=== PATIENT | female | born 1980 | race Caucasian/White ===

== ENCOUNTER → 2021-07-27 | Outpatient (CLI) | payer BC | END | disposition home or self-care (01) | LOC: LAB SHORT 12:07 | DX: N94.6 Dysmenorrhea, unspecified (principal) | CPT/HCPCS: 88305 ==

== ENCOUNTER 2021-10-28 07:40 | Day surgery (SDC) | payer BC ==
[~2021-10-28] VITALS: Ht 162.6 cm; Wt 71.2 kg
--- NOTE | 2021-10-28 08:40 | NUR ---
Ambulatory in Day Surgery History, Chart, Medications and Allergies reviewed before start of procedure. Pre-Op teaching done. Pt verbalizes understanding.
--- NOTE | 2021-10-28 13:19 | NUR ---
PT TOLERATED JELLO AND CRACKERS WELL, SHE WAS THEN TREATED WITH ORAL CHEWABLE SIMETHICONE TO PREVENT GAS PAIN
[2021-10-28 13:34] LABS: BASOPHILS ABSOLUTE AUTO 0.01 K/mm3 (0.00-0.23); BASOPHILS PERCENT AUTO 0 % (0-2); EOSINOPHILS ABSOLUTE AUTO 0.01 K/mm3 (0.00-0.68); EOSINOPHILS PERCENT AUTO 0 % (0-6); Hematocrit 40.2 % (33.0-51.0); Hemoglobin 13.8 g/dL (11.5-16.0); IMMATURE GRAN ABSOLUTE AUTO 0.05 K/mm3 (0.00-0.10); IMMATURE GRAN PERCENT AUTO 0 % (0-1); LYMPHOCYTES ABSOLUTE AUTO 0.65 K/mm3 (0.84-5.20); LYMPHOCYTES PERCENT AUTO 5 % (21-46); MONOCYTES ABSOLUTE AUTO 0.11 K/mm3 (0.16-1.47); MONOCYTES PERCENT AUTO 1 % (4-13); Mean Corpuscular HGB 31.5 pg (26.0-34.0); Mean Corpuscular HGB Conc 34.3 g/dL (31.5-36.5); Mean Corpuscular Volume 92 fL (80-100); Mean Platelet Volume 10.9 fL (9.1-12.4); NEUTROPHILS ABSOLUTE AUTO 12.33 K/mm3 (1.96-9.15); NEUTROPHILS PERCENT AUTO 94 % (41-73); Platelet Count 233 K/mm3 (150-400); RDW Coefficient Variation 11.9 % (11.7-14.2); RDW Standard Deviation 40.1 fL (35.1-46.3); Red Blood Cell Count 4.38 M/mm3 (3.80-5.20); White Blood Cell Count 13.16 K/mm3 (4.00-11.30)
--- NOTE | 2021-10-28 14:43 | NUR ---
PATIENT UPDATE THIS RN AND RODERICK RN ATTEMPTED TO AMBULATE THE PATIENT AT THE PATIENT REQUEST. PATIENT WAS ABLE TO SIT ON THE SIDE OF THE BED AND TOLERATED THAT WELL. UPON STANDING FOR A MINUTE IN FROM OF THE BED THE PATIENT BECAME NAUSEOUS. PATIENT SAT BACK IN BED AND ASKED TO LAY BACK DOWN. PATIENT ASSISTED AND HEATING PAD GIVEN TO PATIENT. PATIENT REPORTED HER PAIN IS WELL CONTROLLED CURRENTLY. MEDICATED PER EMAR FOR NAUSEA. SCDs PUT BACK ON BILATERAL CALVES. BED IN LOWEST POSITION AND CALL LIGHT IN REACH. PATIENT'S MOTHER AT BEDSIDE.
--- NOTE | 2021-10-28 16:33 | NUR ---
PATIENT UPDATE PATIENT WAS ABLE TO AMBULATE TO THE HALLWAY WITH THIS RN AND RODERICK RN WALKING WITH HER FOR SAFETY. PATIENT DENIED PAIN/DIZZINESS/NAUSEA DURING AMBULATION. ARGUELLO CATHETER WAS DC'D WHEN PATIENT RETURNED TO THE BED. PATIENT INDEPENDENTLY WALKED TO THE BATHROOM AFTER CATHETER WAS REMOVED AND WAS ABLE TO VOID A SMALL UNMEASURABLE AMOUNT. HAT PLACED IN TOILET TO MEASURE FURTHER VOIDS. PATIENT IN BED WITH MOTHER AT BEDSIDE. BED IN LOWEST POSITION AND CALL LIGHT WITHIN REACH.
[2021-10-28] MEDS ORDERED: Percocet 5-3251 EACH PO (18:16)
[2021-10-28] MEDS ORDERED: IBU800 MG PO (18:17)
--- NOTE | 2021-10-28 20:49 | NUR ---
DISCHARGE SUMMARY POD0 LAP HYSTER, A/O X4, VSS, TOLERATING PO, AMBULATING INDEPENDENTLY, VOIDING WELL, PAIN TOLERABLE WITH OUT NEEDING MEDICATIONS (PER PT REPORT). DISCUSSED DISCHARGE INFORMATION WITH THE PATIENT AND HER FAMILY INCLUDING HOME CARE, MEDICATIONS, S/SX TO LOOK OUT FOR, CONTACT INFORMATION SHOULD QUESTIONS COME UP AFTER DISCHARGE, AND FOLLOW UP APPOINTMENTS. PT REPORTED HAVING NO QUESTIONS AT THIS TIME. REMOVED IV ACCESS AND NO OTHER ACCESS DEVICES IN PLACE AT TIME OF DISCHARGE. PT DECLINED WC ESCORT AND LEFT ON FOOT TO GO HOME WITH FAMILY.
== END 2021-10-28 20:47 | disposition home or self-care (01) ==
LOC: ORSCMMR 07:40 → ORD 09:30 → ORSCMMR 09:30 → SURS 12:33 → ORSCMMR 20:47
PROVIDERS: Obstetrics & Gynecology
PROC: 0UT7FZZ Resection of Bilateral Fallopian Tubes, Via Natural or Artificial Opening With Percutaneous Endoscopic Assistance (ICD-10-PCS; principal; 2021-10-28 09:30)
PROC: 0UT9FZZ Resection of Uterus, Via Natural or Artificial Opening With Percutaneous Endoscopic Assistance (ICD-10-PCS; principal; 2021-10-28 09:30)
DX: N92.0 Excessive and frequent menstruation with regular cycle (principal); N94.6 Dysmenorrhea, unspecified; N80.0 Endometriosis of uterus; N72 Inflammatory disease of cervix uteri; N94.89 Other specified conditions associated with female genital organs and menstrual cycle
CPT/HCPCS: 36415; 85025; 88307; A9270; J0690; J1100; J1885; J2250; J2405; J2704; J2765; J3010; J7120

== ENCOUNTER 2024-11-05 13:35 | Day surgery (SDC) | payer BC ==
[~2024-11-05] VITALS: Ht 162.6 cm; Wt 68.0 kg
[2024-11-05] VITALS (16 sets, daily range): BP systolic 93–121; BP diastolic 49–79
[~2024-11-05 13:35] MED LIST: ASPI81CH PO; IBU800 MG PO; Percocet 5-3251 EACH PO
--- NOTE | 2024-11-05 14:21 | NUR ---
Ambulatory in Day Surgery. History, Chart, Medications and Allergies reviewed before start of procedure. Lungs clear T/O to Auscultation. Patient confirms NPO status and agrees with scheduled surgery. Pre-Op teaching done. Pt verbalizes understanding. Patient States Post-Procedure ride home has been arranged.
--- NOTE | 2024-11-05 16:18 | NUR ---
11/05/24 [id number] Eduard Gallego CONFIRMED AND REVIEWED H&P, MEDCICATIONS, ALLERGIES, MEDICAL HISTORY, RESPIRATORY HISTORY, VITAL SIGNS, 3-LEAD EKG, CONSENTS, AND PHYSICIAN ORDERS. PATIENT CONFIRMS NPO STATUS AND AGREES WITH SCHEDULED PROCEDURE. MONITOR INTACT WITH CONTINUOUS PULSE OXIMETRY, CAPNOGRAPHY, 3-LEAD EKG, INTERMITTENT BP. SUPPLEMENTAL O2 TO BE TITRATED THROUGHOUT PROCEDURE TO MAINTAIN O2 SATURATION ABOVE 90%. PATIENT DETERMINED TO BE ASA APPROPRIATE FOR PROPOFOL SEDATION PRIOR TO START OF PROCEDURE BY DR. ACOSTA
--- NOTE | 2024-11-05 17:12 | NUR ---
TO STEP POST PROCEDURE. TYRON PO WELL. DENIES PAIN, NAUSEA, SOB. VERBALIZED UNDERSTANDING OF DC INSTRUCTIONS. DC'D IV INTACT. UP TO WC WITH STEADY GAIT. DC'D TO PRIVATE CAR WITH TWO WAY RADIO TECHNICIAN.
== END 2024-11-05 17:10 | disposition home or self-care (01) ==
LOC: ORSCMMR 13:35 → ORD 15:15 → ORSCMMR 17:10
PROVIDERS: Surgery
PROC: 0DJD8ZZ Inspection of Lower Intestinal Tract, Via Natural or Artificial Opening Endoscopic (ICD-10-PCS; principal; 2024-11-05 15:15)
DX: R19.4 Change in bowel habit (principal); D64.9 Anemia, unspecified; K64.1 Second degree hemorrhoids; K64.9 Unspecified hemorrhoids; J45.909 Unspecified asthma, uncomplicated; E78.5 Hyperlipidemia, unspecified; Z87.891 Personal history of nicotine dependence; Z79.82 Long term (current) use of aspirin; Z79.899 Other long term (current) drug therapy
CPT/HCPCS: J2704; J7120